=== PATIENT | female | born 1975 | race Caucasian/White ===

== ENCOUNTER 2018-05-15 14:20 | Emergency (ER) | payer SELFPAY ==
[~2018-05-15] VITALS: Ht 142.2 cm; Wt 62.1 kg
[2018-05-15 14:27] VITALS: BP 151/87
--- NOTE | 2018-05-15 14:32 | NUR ---
PT AMBULATES TO BED 1
--- NOTE | 2018-05-15 14:35 | NUR ---
PT BIB SELF C/O ITCHING AND PAIN TO TWO BUMPS ON POSTERIOR SCALP. REDNESS AND SWELLING NOTED, POSSIBLE ABCESS X 2. NO ACTIVE DRAINAGE. A/OX4, GCS 15. 6/10 ACHING PAIN. PT DENIES N/V/D; PERRL, WITH EVEN AND STEADY GAIT; LUNGS CLEAR BL, BREATHING UNLABORED; HR EVEN AND REGULAR, BL PERIPHERAL PULSES PRESENT; BS ACTIVE X4, NO TENDERNESS TO PALPATION, NO HEPATOSPLENOMEGALLY PALPATED, RESONANT TO PERCUSSION; PT DENIES ANY FEVER, CP, SOB, OR COUGH AT THIS TIME; VSS; PATIENT POSITIONED FOR COMFORT; HOB ELEVATED; BEDRAILS UP X2; BED DOWN.
--- NOTE | 2018-05-15 14:40 | NUR ---
PROVIDER AT BEDSIDE
[2018-05-15 15:42] VITALS: BP 146/98
--- NOTE | 2018-05-15 15:42 | NUR ---
Patient discharged with v/s stable. Written and verbal after care instructions given and explained. Patient alert, oriented and verbalized understanding of instructions. Ambulatory with steady gait. All questions addressed prior to discharge. ID band removed. Patient advised to follow up with PMD. Rx of SEPTRA, BACTROBAN, MOTRIN, KEFLEX given. Patient educated on indication of medication including possible reaction and side effects. Opportunity to ask questions provided and answered.
== END 2018-05-15 15:42 | disposition home or self-care (01) ==
LOC: MED 14:20
DX: L02.811 Cutaneous abscess of head [any part, except face] (principal)
CPT/HCPCS: 90471; 90715; 99283